=== PATIENT | female | born 1985 | race Caucasian/White ===

== ENCOUNTER 2018-03-06 13:13 | Emergency (ER) | payer SELFPAY ==
[~2018-03-06] VITALS: Ht 160 cm; Wt 59.1 kg
[2018-03-06] MEDS ORDERED: MULT-952 PO (13:18)
[2018-03-06 14:43] VITALS: BP 118/72
[2018-03-06] MEDS ORDERED: LIDOCAINE/PF 1% 5 ML VIAL INJ ONE (15:00)
[2018-03-06] MEDS ORDERED: PERTUSS(ACELL),DIPH,TET VAC/PF 0.5 ML VIAL IM ONE (15:00)
[2018-03-06] MEDS ORDERED: BACITRACIN 0.9 GM PACKET OINTMENT TP ONE (15:00)
== END 2018-03-06 15:47 | disposition home or self-care (01) ==
LOC: EMS 13:15
DX: S61.411A Laceration without foreign body of right hand, initial encounter (principal); W26.8XXA Contact with other sharp object(s), not elsewhere classified, initial encounter; Y93.89 Activity, other specified; Y92.511 Restaurant or cafe as the place of occurrence of the external cause; Y99.8 Other external cause status
CPT/HCPCS: 12001; 90471; 90715; 99283; J3490